=== PATIENT | male | born 1995 | race Caucasian/White ===

== ENCOUNTER 2023-06-01 15:16 | Emergency (ER) | payer SELFPAY ==
[~2023-06-01] VITALS: Ht 170.2 cm; Wt 82.0 kg
[2023-06-01 15:18] VITALS: BP 152/88; PULSE 92; RESP 16; TEMP 98.6; O2SAT 100
[2023-06-01] MEDS ORDERED: IBUPROFEN 600MG TABLET PO ONE (15:30)
[2023-06-01] MEDS ORDERED: IBUP-2029 MT (16:45)
== END 2023-06-01 17:03 | disposition home or self-care (01) ==
LOC: ER 15:16
DX: S40.012A Contusion of left shoulder, initial encounter (principal); V89.2XXA Person injured in unspecified motor-vehicle accident, traffic, initial encounter; Y93.89 Activity, other specified; Y92.89 Other specified places as the place of occurrence of the external cause; Y99.8 Other external cause status
CPT/HCPCS: 73030; 99283